=== PATIENT | female | born 1950 | race Caucasian/White ===

== ENCOUNTER 2023-02-01 06:33 | Day surgery (SDC) | payer OTHER ==
[2023-02-01] MEDS ORDERED: Ringers Lactate 1,000 ML IV ONE (07:06)
[2023-02-01] MEDS ORDERED: CEFAZOLIN SODIUM 2 GM/VIAL ONE (07:06)
[2023-02-01] MEDS ORDERED: FENTANYL CITR 100 MCG/2 ML ONE ×2 (07:39→08:34)
[2023-02-01] MEDS ORDERED: propofoL 200 MG/20 ML VIAL IV ONE (07:40)
[2023-02-01] MEDS ORDERED: LIDOCAINE 2% MPF 5 ML VIAL ONE (07:40)
[2023-02-01] MEDS ORDERED: ONDANSETRON 4 MG/2 ML VIAL ONE (07:40)
[2023-02-01] MEDS ORDERED: ROCURONIUM 50 MG/5 ML VIAL IV ONE (07:40)
[2023-02-01] MEDS ORDERED: MIDAZOLAM HCL 2 MG/2 ML INJ ONE (07:40)
[2023-02-01] MEDS ORDERED: Levofloxacin500mg IV 500 MG/100 ML BAG IV ONE (07:45)
[2023-02-01] MEDS ORDERED: SUGAMMADEX SODIUM 200 MG/2 ML VIAL IV ONE (07:55)
[2023-02-01] MEDS ORDERED: dexAMETHasone 4 MG/ML VIAL ONE (08:07)
[2023-02-01] MEDS: BUPIVACAINE 0.25% PF 30 ML VIAL ONE ×3 (08:07→08:12)
[2023-02-01] MEDS ORDERED: EPHEDRINE SULF 50 MG/ML VIAL ONE (08:20)
[2023-02-01 10:19] VITALS: O2SAT 97
[2023-02-01 11:19] VITALS: BP 114/71; TEMP 97
--- NOTE | 2023-02-01 15:29 | RAD REPORT ---
EXAM DESCRIPTION: RAD - Fluoroscopy <1 Hour - 02/01/2023 1:37 pm CLINICAL HISTORY: SACRAL MOD COMPARISON: None available. FINDINGS: 38 images were sent to PACS, documenting hardware positions during an image guided sacral mod implant procedure. No radiologist was available for the procedure, nor will any image interpretat ion he provided. Please refer to the procedural report for additional details. Fluoroscopy time: 0.7 minutes. IMPRESSION: Documentation of fluoroscopy utilization as above.
== END 2023-02-01 11:10 | disposition home or self-care (01) ==
LOC: OR 06:33
PROVIDERS: ATTEND Obstetrics & Gynecology
PROC: 0JH73BZ Insertion of Single Array Stimulator Generator into Back Subcutaneous Tissue and Fascia, Percutaneous Approach (ICD-10-PCS; 2023-02-01)
PROC: 01HY3MZ Insertion of Neurostimulator Lead into Peripheral Nerve, Percutaneous Approach (ICD-10-PCS; principal; 2023-02-01 07:30)
DX: N39.46 Mixed incontinence (principal); R15.9 Full incontinence of feces
CPT/HCPCS: 76000; J1100; J2001; J2250; J2405; J2704; J3010; J7120